=== PATIENT | male | born 1945 | race Caucasian/White ===

== ENCOUNTER 2020-07-24 20:29 | Inpatient (IN) ==
--- NOTE | 2020-07-24 20:55 | Emergency Department Note ---
Impression & Plan Multifocal pneumonia, Non-ST elevation [place] (NSTEMI), Hypoxia, Breathlessness, Creatinine elevation ED Provider Note Provider: Alex Beck MD DATE OF SERVICE:07/24/2020 CHIEF COMPLAINT: Shortness of breath HISTORY OF PRESENT ILLNESS: Patient is a 74-year-old gentleman history of diabetes as well as kidney and lung lesion previously resected several years ago follows at the [facility] presenting here today stating that yesterday started with some shortness of breath worsening today. Was seen at the [facility] yesterday and an EKG that was reportedly okay per him as well as a chest x-ray but he does not know the result. Went home and due to worsening symptoms came here today. Denies fever or trauma. Denies URI symptoms. Denies chest pain or abdominal pain at this point. Reports that he just feels very short of breath. Denies significant leg swelling. Denies a history of similar. Denies sick contact to his knowledge. REVIEW OF SYSTEMS: A total of 10 review of systems was obtained and negative except as stated above in the HPI. PAST MEDICAL HISTORY: As noted above MEDICATIONS: Reviewed home medication list SOCIAL HISTORY: , non-smoker PHYSICAL EXAM: GENERAL: alert and oriented sitting on the stretcher with some increased work of breathing. Head: normocephalic and atraumatic EYES: No injection, discharge or icterus. NECK: Trachea midline. ENT: Mucous membranes pink and moist. LUNGS: Airway patent. Some auditory slight wheezes appreciated with increased work of breathing and tachypnea HEART: Regular tachycardic rate and rhythm. No chest wall tenderness ABDOMEN: Soft and non-tender, without guarding or rebound. Healed prior surgical abdominal wounds/port sites. SKIN: Acyanotic, warm, dry, without rashes EXTREMITIES: Without swelling, tenderness or deformity NEUROLOGICAL: No focal deficits. No aphasia. No facial droop or slurred speech. EK bpm sinus tachycardia. No PVC. No acute ST segment elevation noted with some questionable lateral and inferior ST flattening/slight depression. QTC 483. CONTINUOUS CARDIAC MONITORING: was ordered and showed a heart rate of 118 bpm in sinus tachycardia 1 view chest x-ray per my interpretation shows no evidence of pneumothorax or acute rib injury. Rotation is noted on the film question some haziness and opacity around the right medial lung base. No free air under the diaphragm noted. Patient's laboratory studies and imaging reviewed. Differential includes Reactive airway disease, pneumonia, pneumothorax, COPD, CHF, infections, cardiac ischemia, pulmonary embolism, musculoskeletal, gas trointestinal, as well as other pathologies. IMPRESSION/MEDICAL DECISION MAKING: Patient denies significant history of respiratory issue but states he did have what sounds like a partial lung resection several years ago. Denies a smoking history. Denies fever trauma or pain at this point but just shortness of breath. No recent travel. Patient tachypneic and tachycardic here with new oxygen requirement. Having active chest pain at this time. EKG without significant change and appears to be in sinus tachycardia. X-ray question some changes of the right lung base medially. Leukocytosis of 13 is noted. Coronavirus testing was sent as well as influenza testing. Troponin and basic labs sent as well as lactate and cultures. VBG sent. Given some fluid hydration here. Does not seem consistent with fluid overload. Doubt acute aortic dissection given his lack of pain. Laboratory studies show elevated glucose level given some insulin in addition to IV fluids here. Troponin is mildly elevated. Leukocytosis of 13.3 noted. Lactate elevated 2.9. Creatinine elevated 2.4. Given this CT scan of chest for PE was considered but with the kidney function finding we will do a Noncon scan at this time to further evaluate the pulmonary parenchyma. VBG without significant abnormality. Given findings cover empirically with a dose of ceftriaxone. CT scan later shows area of multifocal pneumonia likely some reactive lymphadenopathy. D-dimer is moderately elevated unclear if this is from infection versus possible VTE. Again PE cannot be clearly evaluated at this time with CTA 2/2 Cr. Will provide with a milligram per kilogram dose of Lovenox for anticoagulation at this time. Given additional vancomycin and azithromycin for broad coverage given his multifocal pneumonia findings per the CT scan here. Given aspirin as well with mild troponin elevation; as no CP ?demand as cause. Patient given additional IV fluids. Discussed with the patient and he was agreed with the plan for further care here at the hospital. The hospitalist was contacted. [place] body weight for 30 mg/kg of 2.5 L normal saline ordered. DIAGNOSIS: Multifocal pneumonia, hypoxia, NSTEMI, sepsis DISPOSITION: Hospitalist will evaluate Patient was agreeable with this plan. Critical Care I have personally spent 38 minutes of critical care time in the direct management of this patient. This includes bedside care, interpretation of diagnostic studies, and testing, discussion with consultants, patient, and family members, and other required patient management activities. These 38 minutes is in excess of all separately billable procedures. Preliminary Findings Only See Final Report For Complete Findings CT CHEST Without Contrast: Posterior left upper lobe consolidation and mild patchy left upper lobe ground- glass infiltrates. Anterior right upper lobe ground-glass and interstitial infiltrate. Appearance consistent with pneumonia in the appropriate clinic s etting. No pleural effusions. Mild mediastinal lymphadenopathy which may be reactive. Trace anterior pericardial effusion or thickening. Radiologist: Huey Jonas M.D. Study ready at 22:45 and initial results transmitted at 22:51 Past Med/Surg History Social History Smoking Status: Never smoker Allergies Allergies Allergy/AdvReac Type Severity Reaction Status Date / Time No Known Allergies Allergy Verified 07/24/20 23:15 Home Meds Home Medications Medication Instructions Recorded Confirmed atenolol 100 mg PO DAILY 07/24/20 07/24/20 clonidine HCl 0.2 mg PO BID 07/24/20 07/24/20 glipizide 10 mg PO BID 07/24/20 07/24/20 Results & Data (ED) Vital Signs Vital Signs - 24 hr 07/24/20 20:30 07/24/20 20:32 07/24/20 20:47 Temperature 36.8 C Temperature Source Oral Pulse Rate 123 H 114 H Pulse Rate from SpO2 Sensor Respiratory Rate 28 H 29 H Respiratory Effort / Characteristics Labored Short of Breath Short of Breath Respiratory Pattern Tachypnea Blood Pressure 154/90 H Blood Pressure Mean 111 Pulse Oximetry 79 L 86 L Oxygen Delivery Method Room Air Nasal Cannula Room Air Oxygen Flow Rate 0 Sepsis Recent Fever Within 48 Hours No Sepsis New/Unexplained Change in Mental Status N/A Sepsis Action Taken by Nursing No Action Required Oxygen Flow Rate - Titration 6 Pulse Oximetry Post Tiitration 95 07/24/20 20:48 07/24/20 21:00 07/24/20 21:01 Temperature Temperature Source Pulse Rate 115 H 119 H Pulse Rate from SpO2 Sensor 113 H 120 H Respiratory Rate 28 H 27 H Respiratory Effort / Characteristics Respiratory Pattern Blood Pressure 129/91 Blood Pressure Mean 118 Pulse Oximetry 83 L 90 Oxygen Delivery Method Nasal Cannula Room Air Oxygen Flow Rate 6 Sepsis Recent Fever Within 48 Hours Sepsis New/Unexplained Change in Mental Status Sepsis Action Taken by Nursing Oxygen Flow Rate - Titration Pulse Oximetry Post Tiitration 10/29/20 21:31 07/24/20 21:39 07/24/20 22:01 Temperature Temperature Source Pulse Rate 111 H 106 H Pulse Rate from SpO2 Sensor 111 H 106 H Respiratory Rate 19 26 H Respiratory Effort / Characteristics Spontaneous Labored Short of Breath Respiratory Pattern Blood Pressure 103/47 L 109/78 Blood Pressure Mean 59 85 Pulse Oximetry 93 95 94 Oxygen Delivery Method Nasal Cannula Oxygen Flow Rate 6 6 6 Sepsis Recent Fever Within 48 Hours Sepsis New/Unexplained Change in Mental Status Sepsis Action Taken by Nursing Oxygen Flow Rate - Titration Pulse Oximetry Post Tiitration 07/24/20 22:30 07/24/20 22:56 07/25/20 00:06 Temperature Temperature Source Pulse Rate Pulse Rate from SpO2 Sensor 102 H Respiratory Rate 18 22 Respiratory Effort / Characteristics Non-Labored Non-Labored Respiratory Pattern Blood Pressure 149/71 H Blood Pressure Mean 107 Pulse Oximetry 93 95 95 Oxygen Delivery Method Nasal Cannula Nasal Cannula Oxygen Flow Rate 6 6 6 Sepsis Recent Fever Within 48 Hours Sepsis New/Unexplained Change in Mental Status Sepsis Action Taken by Nursing Oxygen Flow Rate - Titration Pulse Oximetry Post Tiitration Laboratory Data Result diagrams: 07/24/20 21:05 07/24/20 21:05 Lab Results 07/24/20 07/24/20 07/24/20 Range/Units 20:48 20:48 21:05 WBC 13.32 H (4.8-10.8) K/uL RBC 5.04 (4.7-6.1) M/uL Hgb 15.3 (14.0-18.0) g/dL Hct 46.5 (42-52) % MCV 92.3 (80-100) fL MCH 30.4 (25-34) pg MCHC 32.9 (32-36) g/dL RDW Std Deviation 47.2 H (36.4-46.3) fL RDW Coeff of [place] 13.9 (11.5-14.5) % Plt Count 169 (130-400) K/uL MPV 9.8 (7.4-10.4) fL Immature Gran % (Auto) 0.4 % Neut % (Auto) 86.5 % Lymph % (Auto) 5.3 % [place] % (Auto) 7.4 % Eos % (Auto) 0.2 % Baso % (Auto) 0.2 % Neut # (Auto) 11.52 H (1.4-6.5) K/uL Lymph # (Auto) 0.71 L (1.2-3.4) K/uL [place] # (Auto) 0.99 H (0.11-0.59) K/uL Eos # (Auto) 0.02 (0-0.5) K/uL Baso # (Auto) 0.03 (0-0.2) K/uL Immature Gran # (Auto) 0.05 H (0.00-0.02) K/uL PT INR APTT PTT Ratio D-Dimer VBG pH (7.36-7.41) VBG pCO2 (38-50) mmHg VBG pO2 mmHg VBG HCO3 mmol/L VBG O2 Saturation % VBG Base Excess mEq/L Barometric Pressure mm/Hg Sodium (136-145) mmol/L Potassium (3.5-5.1) mmol/L Chloride (98-107) mmol/L Carbon Dioxide (21-32) mmol/L Anion Gap (3-11) BUN (7-18) mg/dl Creatinine (0.6-1.4) mg/dl Est Cr Clr Drug Dosing ml/min Est GFR ( Amer) Est GFR (Non-Af Amer) BUN/Creatinine Ratio (10-20) Glucose (70-99) mg/dl POC Glucose (70-99) mg/dl Lactate (0.4-2.0) mmol/L Calcium (8.5-10.1) mg/dl Magnesium (1.8-2.4) mg/dl Total Bilirubin (0.2-1) mg/dl AST (15-37) U/L ALT (12-78) U/L Alkaline Phosphatase (45-117) U/L Troponin I (0-0.045) ng/ml Total Protein (6.4-8.2) gm/dl Albumin (3.4-5.0) gm/dl Globulin (2.5-4.0) gm/dl Albumin/Globulin Ratio (0.9-2) Lipase (73-393) U/L Beta-Hydroxybutyric Acd (0.2-2.81) mg/dl Procalcitonin Specimen Hemolysis Urine Color Urine Appearance (Clear) Urine pH (4.5-7.5) Ur Specific [place] (1.000-1.030) Urine Protein (Negative) Urine Glucose (UA) (Negative) Urine Ketones (Negative) Urine Blood (Negative) Urine Nitrite (Negative) Urine Bilirubin (Negative) Urine Urobilinogen (Negative) Ur Leukocyte Esterase (Negative) Urine WBC (Auto) (0-5) /hpf Urine RBC (Auto) (0-4) /hpf U Hyaline Cast (Auto) (0-5) /lpf U Epithel Cells (Auto) (0-5) /lpf Urine Bacteria (Auto) (Negative) Urine Yeast Urine Sperm (None Prsent) COVID-19 Eval Order Covid19 Done at [facility] COVID-19 PCR NEGATIVE (Negative) Influ A Molecular Assay (Negative) Influ B Molecular Assay (Negative) 07/24/20 07/24/20 07/24/20 Range/Units 21:05 21:05 21:05 WBC (4.8-10.8) K/uL RBC (4.7-6.1) M/uL Hgb (14.0-18.0) g/dL Hct (42-52) % MCV (80-100) fL MCH (25-34) pg MCHC (32-36) g/dL RDW Std Deviation (36.4-46.3) fL RDW Coeff of [place] (11.5-14.5) % Plt Count (130-400) K/uL MPV (7.4-10.4) fL Immature Gran % (Auto) % Neut % (Auto) % Lymph % (Auto) % [place] % (Auto) % Eos % (Auto) % Baso % (Auto) % Neut # (Auto) (1.4-6.5) K/uL Lymph # (Auto) (1.2-3.4) K/uL [place] # (Auto) (0.11-0.59) K/uL Eos # (Auto) (0-0.5) K/uL Baso # (Auto) (0-0.2) K/uL Immature Gran # (Auto) (0.00-0.02) K/uL PT Cancelled INR Cancelled APTT Cancelled PTT Ratio Cancelled D-Dimer Cancelled VBG pH (7.36-7.41) VBG pCO2 (38-50) mmHg VBG pO2 mmHg VBG HCO3 mmol/L VBG O2 Saturation % VBG Base Excess mEq/L Barometric Pressure mm/Hg Sodium 130 L (136-145) mmol/L Potassium 4.7 (3.5-5.1) mmol/L Chloride 100 (98-107) mmol/L Carbon Dioxide 24 (21-32) mmol/L Anion Gap 7.0 (3-11) BUN 32 H (7-18) mg/dl Creatinine 2.40 H (0.6-1.4) mg/dl Est Cr Clr Drug Dosing 37.4 ml/min Est GFR ( Amer) 30.1 Est GFR (Non-Af Amer) 26.0 BUN/Creatinine Ratio 13.1 (10-20) Glucose 491 H* (70-99) mg/dl POC Glucose (70-99) mg/dl Lactate (0.4-2.0) mmol/L Calcium 9.2 (8.5-10.1) mg/dl Magnesium 1.7 L (1.8-2.4) mg/dl Total Bilirubin 0.4 (0.2-1) mg/dl AST 36 (15-37) U/L ALT 52 (12-78) U/L Alkaline Phosphatase 138 H (45-117) U/L Troponin I 0.094 H* (0-0.045) ng/ml Total Protein 7.8 (6.4-8.2) gm/dl Albumin 3.7 (3.4-5.0) gm/dl Globulin 4.1 H (2.5-4.0) gm/dl Albumin/Globulin Ratio 0.9 (0.9-2) Lipase 155 (73-393) U/L Beta-Hydroxybutyric Acd (0.2-2.81) mg/dl Procalcitonin Cancelled Specimen Hemolysis Urine Color Urine Appearance (Clear) Urine pH (4.5-7.5) Ur Specific [place] (1.000-1.030) Urine Protein (Negative) Urine Glucose (UA) (Negative) Urine Ketones (Negative) Urine Blood (Negative) Urine Nitrite (Negative) Urine Bilirubin (Negative) Urine Urobilinogen (Negative) Ur Leukocyte Esterase (Negative) Urine WBC (Auto) (0-5) /hpf Urine RBC (Auto) (0-4) /hpf U Hyaline Cast (Auto) (0-5) /lpf U Epithel Cells (Auto) (0-5) /lpf Urine Bacteria (Auto) (Negative) Urine Yeast Urine Sperm (None Prsent) COVID-19 Eval Order COVID-19 PCR (Negative) Influ A Molecular Assay (Negative) Influ B Molecular Assay (Negative) 07/24/20 07/24/20 07/24/20 Range/Units 21:05 21:31 21:31 WBC (4.8-10.8) K/uL RBC (4.7-6.1) M/uL Hgb (14.0-18.0) g/dL Hct (42-52) % MCV (80-100) fL MCH (25-34) pg MCHC (32-36) g/dL RDW Std Deviation (36.4-46.3) fL RDW Coeff of [place] (11.5-14.5) % Plt Count (130-400) K/uL MPV (7.4-10.4) fL Immature Gran % (Auto) % Neut % (Auto) % Lymph % (Auto) % [place] % (Auto) % Eos % (Auto) % Baso % (Auto) % Neut # (Auto) (1.4-6.5) K/uL Lymph # (Auto) (1.2-3.4) K/uL [place] # (Auto) (0.11-0.59) K/uL Eos # (Auto) (0-0.5) K/uL Baso # (Auto) (0-0.2) K/uL Immature Gran # (Auto) (0.00-0.02) K/uL PT INR APTT PTT Ratio D-Dimer VBG pH 7.36 (7.36-7.41) VBG pCO2 40 (38-50) mmHg VBG pO2 52 mmHg VBG HCO3 22 mmol/L VBG O2 Saturation 83.9 % VBG Base Excess -2.8 mEq/L Barometric Pressure 726.7 mm/Hg Sodium (136-145) mmol/L Potassium (3.5-5.1) mmol/L Chloride (98-107) mmol/L Carbon Dioxide (21-32) mmol/L Anion Gap (3-11) BUN (7-18) mg/dl Creatinine (0.6-1.4) mg/dl Est Cr Clr Drug Dosing ml/min Est GFR ( Amer) Est GFR (Non-Af Amer) BUN/Creatinine Ratio (10-20) Glucose (70-99) mg/dl POC Glucose (70-99) mg/dl Lactate 2.9 H* (0.4-2.0) mmol/L Calcium (8.5-10.1) mg/dl Magnesium (1.8-2.4) mg/dl Total Bilirubin (0.2-1) mg/dl AST (15-37) U/L ALT (12-78) U/L Alkaline Phosphatase (45-117) U/L Troponin I (0-0.045) ng/ml Total Protein (6.4-8.2) gm/dl Albumin (3.4-5.0) gm/dl Globulin (2.5-4.0) gm/dl Albumin/Globulin Ratio (0.9-2) Lipase (73-393) U/L Beta-Hydroxybutyric Acd (0.2-2.81) mg/dl Procalcitonin Specimen Hemolysis Urine Color Urine Appearance (Clear) Urine pH (4.5-7.5) Ur Specific [place] (1.000-1.030) Urine Protein (Negative) Urine Glucose (UA) (Negative) Urine Ketones (Negative) Urine Blood (Negative) Urine Nitrite (Negative) Urine Bilirubin (Negative) Urine Urobilinogen (Negative) Ur Leukocyte Esterase (Negative) Urine WBC (Auto) (0-5) /hpf Urine RBC (Auto) (0-4) /hpf U Hyaline Cast (Auto) (0-5) /lpf U Epithel Cells (Auto) (0-5) /lpf Urine Bacteria (Auto) (Negative) Urine Yeast Urine Sperm (None Prsent) COVID-19 Eval Order COVID-19 PCR (Negative) Influ A Molecular Assay Negative (Negative) Influ B Molecular Assay Negative (Negative) 07/24/20 07/24/20 07/24/20 Range/Units 22:15 22:19 22:50 WBC (4.8-10.8) K/uL RBC (4.7-6.1) M/uL Hgb (14.0-18.0) g/dL Hct (42-52) % MCV (80-100) fL MCH (25-34) pg MCHC (32-36) g/dL RDW Std Deviation (36.4-46.3) fL RDW Coeff of [place] (11.5-14.5) % Plt Count (130-400) K/uL MPV (7.4-10.4) fL Immature Gran % (Auto) % Neut % (Auto) % Lymph % (Auto) % [place] % (Auto) % Eos % (Auto) % Baso % (Auto) % Neut # (Auto) (1.4-6.5) K/uL Lymph # (Auto) (1.2-3.4) K/uL [place] # (Auto) (0.11-0.59) K/uL Eos # (Auto) (0-0.5) K/uL Baso # (Auto) (0-0.2) K/uL Immature Gran # (Auto) (0.00-0.02) K/uL PT 10.9 INR 1.0 APTT 26.6 PTT Ratio 1.0 D-Dimer 4110 H* VBG pH (7.36-7.41) VBG pCO2 (38-50) mmHg VBG pO2 mmHg VBG HCO3 mmol/L VBG O2 Saturation % VBG Base Excess mEq/L Barometric Pressure mm/Hg Sodium (136-145) mmol/L Potassium (3.5-5.1) mmol/L Chloride (98-107) mmol/L Carbon Dioxide (21-32) mmol/L Anion Gap (3-11) BUN (7-18) mg/dl Creatinine (0.6-1.4) mg/dl Est Cr Clr Drug Dosing ml/min Est GFR ( Amer) Est GFR (Non-Af Amer) BUN/Creatinine Ratio (10-20) Glucose (70-99) mg/dl POC Glucose (70-99) mg/dl Lactate (0.4-2.0) mmol/L Calcium (8.5-10.1) mg/dl Magnesium (1.8-2.4) mg/dl Total Bilirubin (0.2-1) mg/dl AST (15-37) U/L ALT (12-78) U/L Alkaline Phosphatase (45-117) U/L Troponin I (0-0.045) ng/ml Total Protein (6.4-8.2) gm/dl Albumin (3.4-5.0) gm/dl Globulin (2.5-4.0) gm/dl Albumin/Globulin Ratio (0.9-2) Lipase (73-393) U/L Beta-Hydroxybutyric Acd (0.2-2.81) mg/dl Procalcitonin < 0.05 Specimen Hemolysis Urine Color Yellow Urine Appearance Clear (Clear) Urine pH 5.0 (4.5-7.5) Ur Specific [place] 1.025 (1.000-1.030) Urine Protein 1+ H (Negative) Urine Glucose (UA) 3+ H (Negative) Urine Ketones Negative (Negative) Urine Blood Negative (Negative) Urine Nitrite Negative (Negative) Urine Bilirubin Negative (Negative) Urine Urobilinogen Negative (Negative) Ur Leukocyte Esterase 1+ H (Negative) Urine WBC (Auto) 10-30 H (0-5) /hpf Urine RBC (Auto) 0-4 (0-4) /hpf U Hyaline Cast (Auto) 1-5 (0-5) /lpf U Epithel Cells (Auto) >30 H (0-5) /lpf Urine Bacteria (Auto) Negative (Negative) Urine Yeast Not Reportable Urine Sperm Present A (None Prsent) COVID-19 Eval Order COVID-19 PCR (Negative) Influ A Molecular Assay (Negative) Influ B Molecular Assay (Negative) 07/24/20 07/25/20 Range/Units 23:33 00:06 WBC (4.8-10.8) K/uL RBC (4.7-6.1) M/uL Hgb (14.0-18.0) g/dL Hct (42-52) % MCV (80-100) fL MCH (25-34) pg MCHC (32-36) g/dL RDW Std Deviation (36.4-46.3) fL RDW Coeff of [place] (11.5-14.5) % Plt Count (130-400) K/uL MPV (7.4-10.4) fL Immature Gran % (Auto) % Neut % (Auto) % Lymph % (Auto) % [place] % (Auto) % Eos % (Auto) % Baso % (Auto) % Neut # (Auto) (1.4-6.5) K/uL Lymph # (Auto) (1.2-3.4) K/uL [place] # (Auto) (0.11-0.59) K/uL Eos # (Auto) (0-0.5) K/uL Baso # (Auto) (0-0.2) K/uL Immature Gran # (Auto) (0.00-0.02) K/uL PT INR APTT PTT Ratio D-Dimer VBG pH (7.36-7.41) VBG pCO2 (38-50) mmHg VBG pO2 mmHg VBG HCO3 mmol/L VBG O2 Saturation % VBG Base Excess mEq/L Barometric Pressure mm/Hg Sodium (136-145) mmol/L Potassium (3.5-5.1) mmol/L Chloride (98-107) mmol/L Carbon Dioxide (21-32) mmol/L Anion Gap (3-11) BUN (7-18) mg/dl Creatinine (0.6-1.4) mg/dl Est Cr Clr Drug Dosing ml/min Est GFR ( Amer) Est GFR (Non-Af Amer) BUN/Creatinine Ratio (10-20) Glucose (70-99) mg/dl POC Glucose 301 H* (70-99) mg/dl Lactate 1.6 (0.4-2.0) mmol/L Calcium (8.5-10.1) mg/dl Magnesium (1.8-2.4) mg/dl Total Bilirubin (0.2-1) mg/dl AST (15-37) U/L ALT (12-78) U/L Alkaline Phosphatase (45-117) U/L Troponin I (0-0.045) ng/ml Total Protein (6.4-8.2) gm/dl Albumin (3.4-5.0) gm/dl Globulin (2.5-4.0) gm/dl Albumin/Globulin Ratio (0.9-2) Lipase (73-393) U/L Beta-Hydroxybutyric Acd (0.2-2.81) mg/dl Procalcitonin Specimen Hemolysis Urine Color Urine Appearance (Clear) Urine pH (4.5-7.5) Ur Specific [place] (1.000-1.030) Urine Protein (Negative) Urine Glucose (UA) (Negative) Urine Ketones (Negative) Urine Blood (Negative) Urine Nitrite (Negative) Urine Bilirubin (Negative) Urine Urobilinogen (Negative) Ur Leukocyte Esterase (Negative) Urine WBC (Auto) (0-5) /hpf Urine RBC (Auto) (0-4) /hpf U Hyaline Cast (Auto) (0-5) /lpf U Epithel Cells (Auto) (0-5) /lpf Urine Bacteria (Auto) (Negative) Urine Yeast Urine Sperm (None Prsent) COVID-19 Eval Order COVID-19 PCR (Negative) Influ A Molecular Assay (Negative) Influ B Molecular Assay (Negative) Administered Medications Azithromycin 500 mg/ Dextrose 255 mls @ 127.5 mls/hr IV NOW STA Stop: 07/25/20 00:59 Last Admin: 07/24/20 23:34 Dose: 127.5 mls/hr Documented by: [id number] Vancomycin HCl 2,500 mg/ (Sodium Chloride) 550 mls @ 200 mls/hr IV NOW ONE Stop: 07/25/20 01:44 Last Admin: 07/24/20 23:35 Dose: 200 mls/hr Documented by: [id number] Discontinued Medications Aspirin (Aspirin 81 Mg Chew) 324 mg PO NOW STA Stop: 07/24/20 23:01 Last Admin: 07/24/20 23:35 Dose: 324 mg Documented by: [id number] Enoxaparin Sodium (Enoxaparin 1 Mg/Kg) 1 mg SQ ONCE ONE Stop: 07/24/20 23:02 Last Admin: 07/24/20 23:35 Dose: 1 mg Documented by: [id number] Enoxaparin Sodium (Enoxaparin Inj 120 Mg/0.8 Ml Syr) 120 mg SQ NOW STA Stop: 07/24/20 23:07 Last Admin: 07/24/20 23:35 Dose: 120 mg Documented by: [id number] Sodium Chloride (Nss 1000ml) 1,000 mls @ 999 mls/hr IV .Q1H1M [id number] Stop: 07/24/20 22:00 Last Admin: 07/24/20 21:56 Dose: 999 mls/hr Documented by: [id number] Ceftriaxone Sodium (Rocephin) 2,000 mg in 70 mls @ 140 mls/hr IV NOW STA Stop: 07/24/20 22:50 Last Admin: 07/24/20 23:02 Dose: 140 mls/hr Documented by: [id number] Sodium Chloride (Nss 1000ml) 1,000 mls @ 999 mls/hr IV .Q1H1M ONE Stop: 07/25/20 00:20 Last Admin: 07/24/20 23:36 Dose: 999 mls/hr Documented by: [id number] Insulin Human Regular (Novolin-R Insulin Per Unit Charge) 10 units IV NOW STA Stop: 07/24/20 22:08 Last Admin: 07/24/20 22:13 Dose: 10 units Documented by: [id number] Cosigned by: [id number] Discharge Plan Visit Data Chief Complaint: Shortness of Breath/Dyspnea Stated Complaint: SOB, TROUBLE BREATHING ED Provider: Alex Beck Discharge Problem: Multifocal pneumonia, Non-ST elevation [place] (NSTEMI), Hypoxia, Breathlessness, Creatinine elevation Patient Disposition: Admitted As Inpatient Forms Stand Alone Forms: My [facility] Prescriptions Prescriptions: No Action clonidine HCl 0.1 mg tablet 0.2 mg PO BID RF: 0 atenolol 100 mg tablet 100 mg PO DAILY RF: 0 glipizide 10 mg tablet 10 mg PO BID RF: 0 Referrals Referrals: PCP,NO [Primary Care Provider] -
[2020-07-24] MEDS ORDERED: SODIUM CHLORIDE 0.9% 1000ML 1,000 ML IV SCH (21:00)
[2020-07-24 21:29] LABS: Basophils # (auto) 0.03 K/uL (0-0.2); Basophils % (auto) 0.2 %; Eosinophils # (auto) 0.02 K/uL (0-0.5); Eosinophils % (auto) 0.2 %; Hematocrit (blood only) 46.5 % (42-52); Hemoglobin 15.3 g/dL (14.0-18.0); Immature Granulocytes # (auto) 0.05 K/uL (0.00-0.02); Immature Granulocytes % (auto) 0.4 %; Lymphocytes # (auto) 0.71 K/uL (1.2-3.4); Lymphocytes % (auto) 5.3 %; Mean Corpuscular Hemoglobin 30.4 pg (25-34); Mean Corpuscular Hgb Conc 32.9 g/dL (32-36); Mean Corpuscular Volume 92.3 fL (80-100); Mean Platelet Volume 9.8 fL (7.4-10.4); Monocytes # (auto) 0.99 K/uL (0.11-0.59); Monocytes % (auto) 7.4 %; Neutrophils # (auto) 11.52 K/uL (1.4-6.5); Neutrophils % (auto) 86.5 %; Platelet Count 169 K/uL (130-400); RDW Coefficient of Variation 13.9 % (11.5-14.5); RDW Standard Deviation 47.2 fL (36.4-46.3); Red Blood Count 5.04 M/uL (4.7-6.1); White Blood Count 13.32 K/uL (4.8-10.8)
[2020-07-24 21:51] LABS: Influenza A virus by PCR Negative (Negative); Influenza B virus by PCR Negative (Negative)
[2020-07-24 21:58] LABS: Albumin Globulin Ratio 0.9 (0.9-2); Albumin Level 3.7 gm/dl (3.4-5.0); BUN Creatinine Ratio 13.1 (10-20); Bilirubin,Total 0.4 mg/dl (0.2-1); Calcium 9.2 mg/dl (8.5-10.1); Creatinine Clr Calc Pharmacy 37.4 ml/min; Est GFR (African American) 30.1; Globulin 4.1 gm/dl (2.5-4.0); Magnesium 1.7 mg/dl (1.8-2.4); Potassium 4.7 mmol/L (3.5-5.1); Total Protein 7.8 gm/dl (6.4-8.2); Troponin I 0.094 ng/ml (0-0.045)
[2020-07-24 22:05] LABS: Base Excess VBG -2.8 mEq/L; Oxygen Saturation VBG 83.9 %; pH VBG 7.36 (7.36-7.41)
[2020-07-24] MEDS ORDERED: NovoLIN-R INSULIN PER UNIT CHARGE IV STA (22:07)
[2020-07-24] MEDS ORDERED: cefTRIAXone SODIUM 2,000 MG/70 ML BAG IV STA (22:21)
[2020-07-24 22:52] LABS: Partial Thromboplastin Time 26.6 Seconds (21.0-31.0); Prothrombin Time 10.9 Seconds (9.0-12.0)
[2020-07-24 22:54] LABS: D Dimer 4110 ug/L FEU (0-500)
[2020-07-24] MEDS ORDERED: AZITHROMYCIN 500 MG in DEXTROSE 5% 250 ML IV STA (23:00)
[2020-07-24] MEDS ORDERED: VANCOMYCIN CONSULT ACTIVE PRN (23:00)
[2020-07-24] MEDS ORDERED: VANCOMYCIN HCL 2,500 MG in SODIUM CHLORIDE 0.9% 500 ML IV ONE (23:00)
[2020-07-24] MEDS ORDERED: ASPIRIN 81 MG CHEW PO STA (23:00)
[2020-07-24] MEDS ORDERED: ENOXAPARIN 1 MG/KG SQ ONE (23:01)
[2020-07-24] MEDS ORDERED: ENOXAPARIN INJ 120 MG/0.8 ML SYR SQ STA (23:06)
[2020-07-24 23:11] LABS: Appearance Urine Clear (Clear); Bacteria Urine Automated Negative (Negative); Bilirubin Urine Negative (Negative); Blood Urine Negative (Negative); Color Urine Yellow; Epithelial Cell Urine Auto >30 /lpf (0-5); Glucose Urine UA 3+ (Negative); Ketones Urine Negative (Negative); Leukocyte Esterase Urine 1+ (Negative); Nitrite Urine Negative (Negative); Protein Urine 1+ (Negative); RBC Urine Automated 0-4 /hpf (0-4); Specific Gravity Urine 1.025 (1.000-1.030); Urobilinogen Urine Negative (Negative)
[2020-07-24] MEDS ORDERED: SODIUM CHLORIDE 0.9% 1000ML 1,000 ML IV ONE (23:20)
[2020-07-24] MEDS ORDERED: SODIUM CHLORIDE 0.9% 1000ML 500 ML IV ONE (23:32)
--- NOTE | 2020-07-24 23:52 | History & Physical Report ---
Date of Service July 24, 2020 Assessment & Plan (1) Multifocal pneumonia: Vancomycin IV per pharmacokinetic monitoring. Zosyn 4.5 g IV every 8 hours Azithromycin 500 mg IV daily Duonebs every 4 hours while awake and every 2 hours when necessary. Nasal cannula oxygen titrate to keep pulse ox 94 to 95% Present on Admission?: Yes (2) Non-ST elevation SD (NSTEMI): NSTEMI/hypertension- The patient will be admitted to telemetry for serial cardiac enzymes, serial EKG's, cardiac rhythm monitoring and a 2-D echocardiogram with Dopplers. Continue atenolol 100 mg daily, clonidine 0.2 mg p.o. twice daily. Add aspirin 81 mg daily Present on Admission?: Yes (3) Renal insufficiency: Creatinine 2.40 upon admission with unknown baseline. Repeat laboratories in a.m. Present on Admission?: Yes (4) Diabetes mellitus: Hold glipizide. Placed on Accu-Cheks before meals and at bedtime with NovoLog coverage per scale Check hemoglobin A1c and a fasting lipid panel Present on Admission?: Yes (5) Hypertension: See above Present on Admission?: Yes (6) COVID-19 virus antibody negative: History of Present Illness Chief Complaint: The patient presents to the emergency department with complaint of worsening shortness of breath today, after initial assessment at the [place] clinic yesterday. Primary Care Provider: NO PCP The patient is a 74-year-old male with a past medical history including hypertension, diabetes mellitus, presently undergoing chemotherapy for cancer involving lung and kidney. He was seen at the [place] clinic yesterday due to developing shortness of breath, and reports having a chest x-ray and EKG that he thought were normal. Due to worsening issues with breathing, he presented to the emergency department today for further assessment. Work-up in the emergency department included a chest x-ray and CT scan of chest which showed multifocal pneumonia, creatinine 2.40, troponin 0 0.094, magnesium 1.7, D-dimer 4110, and WBC 13.32. Allergies Allergy/AdvReac Type Severity Reaction Status Date / Time No Known Allergies Allergy Verified 07/24/20 23:15 Home Medications Home Medications Medication Instructions Recorded Confirmed Type atenolol 100 mg PO DAILY 07/24/20 07/24/20 History clonidine HCl 0.2 mg PO BID 07/24/20 07/24/20 History glipizide 10 mg PO BID 07/24/20 07/24/20 History Past Med/Surg History Medical History (Updated 07/25/20 @ 02:38 by Paul Aburto MD) Diabetes mellitus Hypertension Social History Smoking Status: Never smoker Hx Alcohol Use: No Hx Substance Use: No Preferred Language: [place]se Communication Ability: Effective Supply Requirements Officer Required: No Beliefs That Will Affect Care: None Current Living Situation: Alone Feels Safe at Home: Yes Review of Systems Review of Systems: The patient denies chest pain, palpitations, lower extremity swelling, sore throat, fevers, chills, sweats, nausea, vomiting, diarrhea , constipation, abdominal pain, pelvic pain, blood in urine or stool, dysuria, urinary frequency or urgency, lightheadedness, dizziness, headache, memory loss, loss of consciousness, rash, abnormal bruising or bleeding, imbalance, focal or generalized weakness, numbness or tingling in arms or legs, generalized arthralgias or myalgias, back or neck pain, or night sweats. The review of systems is otherwise negative other than for that already noted above, and at least 10 systems have been reviewed. Physical Exam Physical Exam: The patient is awake, alert and oriented 3, well developed and well nourished, normocephalic and atraumatic, lying in bed and in no acute distress. HEENT--PERRL, EOMI, mucous membranes and oropharynx normal. Neck--supple. No JVD. No bruits. Thyroid normal, trachea midline, no adenopathy. Heart--normal S1 and S2. No murmurs, rubs or gallops. Lungs--coarse breath sounds with wheezes bilaterally. No respiratory distress, no accessory muscle use. Abdomen--normal bowel sounds and soft. Nontender. Nondistended. Extremities--no cyanosis or clubbing. No edema. Dermatologic--normal skin turgor, normal color, no abnormal lymph nodes, no rash. Neurologic--cranial nerves II through XII grossly intact. Rheumatologic--normal range of motion. Psychiatric--normal affect. Results & Data Results & Data ([facility]) Vital Signs (Past 12 Hours) Vital Signs Temp Pulse Resp BP Pulse Ox 07/24/20 22:56 18 95 07/24/20 22:30 149/71 H 93 07/24/20 22:01 106 H 26 H 109/78 94 07/24/20 21:39 95 07/24/20 21:31 111 H 19 103/47 L 93 07/24/20 21:01 119 H 27 H 129/91 90 07/24/20 21:00 115 H 28 H 83 L 07/24/20 20:47 114 H 29 H 07/24/20 20:32 98.2 F 123 H 28 H 154/90 H 86 L 07/24/20 20:30 79 L Laboratory Results Laboratory Results WBC 13.32 K/uL (4.8-10.8) H 07/24/20 21:05 RBC 5.04 M/uL (4.7-6.1) 07/24/20 21:05 Hgb 15.3 g/dL (14.0-18.0) 07/24/20 21:05 Hct 46.5 % (42-52) 07/24/20 21:05 MCV 92.3 fL (80-100) 07/24/20 21:05 MCH 30.4 pg (25-34) 07/24/20 21:05 MCHC 32.9 g/dL (32-36) 07/24/20 21:05 RDW Std Deviation 47.2 fL (36.4-46.3) H 07/24/20 21:05 RDW Coeff of [place] 13.9 % (11.5-14.5) 07/24/20 21:05 Plt Count 169 K/uL (130-400) 07/24/20 21:05 MPV 9.8 fL (7.4-10.4) 07/24/20 21:05 Immature Gran % (Auto) 0.4 % 07/24/20 21:05 Neut % (Auto) 86.5 % 07/24/20 21:05 Lymph % (Auto) 5.3 % 07/24/20 21:05 [place] % (Auto) 7.4 % 07/24/20 21:05 Eos % (Auto) 0.2 % 07/24/20 21:05 Baso % (Auto) 0.2 % 07/24/20 21:05 Neut # (Auto) 11.52 K/uL (1.4-6.5) H 07/24/20 21:05 Lymph # (Auto) 0.71 K/uL (1.2-3.4) L 07/24/20 21:05 [place] # (Auto) 0.99 K/uL (0.11-0.59) H 07/24/20 21:05 Eos # (Auto) 0.02 K/uL (0-0.5) 07/24/20 21:05 Baso # (Auto) 0.03 K/uL (0-0.2) 07/24/20 21:05 Immature Gran # (Auto) 0.05 K/uL (0.00-0.02) H 07/24/20 21:05 PT 10.9 Seconds (9.0-12.0) 07/24/20 22: INR 1.0 (0.9-1.1) 07/24/20 22:19 APTT 26.6 Seconds (21.0-31.0) 07/24/20 22:19 PTT Ratio 1.0 07/24/20 22:19 D-Dimer 4110 ug/L FEU (0-500) H* 07/24/20 22:19 VBG pH 7.36 (7.36-7.41) 07/24/20 21:31 VBG pCO2 40 mmHg (38-50) 07/24/20 21:31 VBG pO2 52 mmHg 07/24/20 21:31 VBG HCO3 22 mmol/L 07/24/20 21:31 VBG O2 Saturation 83.9 % 07/24/20 21:31 VBG Base Excess -2.8 mEq/L 07/24/20 21:31 Barometric Pressure 726.7 mm/Hg 07/24/20 21:31 Sodium 130 mmol/L (136-145) L 07/24/20 21:05 Potassium 4.7 mmol/L (3.5-5.1) 07/24/20 21:05 Chloride 100 mmol/L (98-107) 07/24/20 21:05 Carbon Dioxide 24 mmol/L (21-32) 07/24/20 21:05 Anion Gap 7.0 (3-11) 07/24/20 21:05 BUN 32 mg/dl (7-18) H 07/24/20 21:05 Creatinine 2.40 mg/dl (0.6-1.4) H 07/24/20 21:05 Est Cr Clr Drug Dosing 37.4 ml/min 07/24/20 21:05 Est GFR ( Amer) 30.1 07/24/20 21:05 Est GFR (Non-Af Amer) 26.0 07/24/20 21:05 BUN/Creatinine Ratio 13.1 (-20) 07/24/20 21:05 Glucose 491 mg/dl (70-99) H* 07/24/20 21:05 POC Glucose 301 mg/dl (70-99) H* 07/24/20 23:33 Lactate 1.6 mmol/L (0.4-2.0) 07/25/20 00:06 Calcium 9.2 mg/dl (8.5-10.1) 07/24/20 21:05 Magnesium 1.7 mg/dl (1.8-2.4) L 07/24/20 21:05 Total Bilirubin 0.4 mg/dl (0.2-1) 07/24/20 21:05 AST 36 U/L (15-37) 07/24/20 21:05 ALT 52 U/L (12-78) 07/24/20 21:05 Alkaline Phosphatase 138 U/L (45-117) H 07/24/20 21:05 Troponin I 0.094 ng/ml (0-0.045) H* 07/24/20 21:05 Total Protein 7.8 gm/dl (6.4-8.2) 07/24/20 21:05 Albumin 3.7 gm/dl (3.4-5.0) 07/24/20 21:05 Globulin 4.1 gm/dl (2.5-4.0) H 07/24/20 21:05 Albumin/Globulin Ratio 0.9 (0.9-2) 07/24/20 21:05 Lipase 155 U/L (73-393) 07/24/20 21:05 Beta-Hydroxybutyric Acd mg/dl (0.2-2.81) 07/24/20 21:05 Procalcitonin < 0.05 ng/ml (0-0.5) 07/24/20 22:15 Specimen Hemolysis 07/24/20 21:05 Urine Color Yellow 07/24/20 22:50 Urine Appearance Clear (Clear) 07/24/20 22:50 Urine pH 5.0 (4.5-7.5) 07/24/20 22:50 Ur Specific [place] 1.025 (1.000-1.030) 07/24/20 22:50 Urine Protein 1+ (Negative) H 07/24/20 22:50 Urine Glucose (UA) 3+ (Negative) H 07/24/20 22:50 Urine Ketones Negative (Negative) 07/24/20 22:50 Urine Blood Negative (Negative) 07/24/20 22:50 Urine Nitrite Negative (Negative) 07/24/20 22:50 Urine Bilirubin Negative (Negative) 07/24/20 22:50 Urine Urobilinogen Negative (Negative) 07/24/20 22:50 Ur Leukocyte Esterase 1+ (Negative) H 07/24/20 22:50 Urine WBC (Auto) 10-30 /hpf (0-5) H 07/24/20 22:50 Urine RBC (Auto) 0-4 /hpf (0-4) 07/24/20 22:50 U Hyaline Cast (Auto) 1-5 /lpf (0-5) 07/24/20 22:50 U Epithel Cells (Auto) >30 /lpf (0-5) H 07/24/20 22:50 Urine Bacteria (Auto) Negative (Negative) 07/24/20 22:50 Urine Yeast Not Reportable 07/24/20 22:50 Urine Sperm Present (None Prsent) A 07/24/20 22:50 COVID-19 Eval Order Covid19 Done at [facility] 07/24/20 20:48 COVID-19 PCR NEGATIVE (Negative) 07/24/20 20:48 Influ A Molecular Assay Negative (Negative) 07/24/20 21:05 Influ B Molecular Assay Negative (Negative) 07/24/20 21:05 Diagnostic Findings [facility] Patient: REANNA STARKS JR (Male) : 49 Status: ER Date: 07/24/20 22:42 Room #: History: sob, negative covid test Slices: [id number] Priors: Tech: Domenica Ni @ [id number] Exams: CT CHEST Without Contrast Contrast: Accession Numbers: [id number] Preliminary Findings Only See Final Report For Complete Findings CT CHEST Without Contrast: Posterior left upper lobe consolidation and mild patchy left upper lobe ground- glass infiltrates. Anterior right upper lobe ground-glass and interstitial infiltrate. Appearance consistent with pneumonia in the appropriate clinic setting. No pleural effusions. Mild mediastinal lymphadenopathy which may be reactive. Trace anterior pericardial effusion or thickening. Radiologist: Huey Jonas M.D. Study ready at 22:45 and initial results transmitted at 22:51 *This report constitutes a preliminary interpretation only. Non-acute findings felt to be unrelated to the clinical presentation may not be discussed in this report. The study will be interpreted and a final report will be generated by the local Radiologist the following shift. To reach the hospital radiology department call [phone]. If a discrepancy is found between the preliminary and final interpretations of this study, please notify us via our Client Portal at [email or web address], under QA Exams.You can also fax this report with a description of the discrepancy, or include the final report, to our daytime fax number [phone].If faxing, please indicate the severity of discrepancy using one of the following categories: [ ] 1 - Agree/Informational [ ] 2 - Unlikely to Affect Management [ ] 3 - Possible Eventual Change of Management [ ] 4 - Probable Immediate Change of Management For all other patient related information, please fax us at [phone]. [id number] Code Status & VTE Plan Code Status Full code VTE Prophylaxis Plan VTE Prophylaxis will be ordered: Yes PG Care Time/CCT Total # of Minutes Spent Total Time Spent with Patient: Total time spent is greater than 50% in coordination of care (as documented) at patient's floor/unit and/or counseling patient: Coding Level of Care Code 33870 Initial Inpt Care Lvl 3 Diagnoses Multifocal pneumonia J18.9 Non-ST elevation SD (NSTEMI) I21.4 Renal insufficiency N28.9 Diabetes mellitus E11.9 Hypertension I10 COVID-19 virus antibody negative Z01.84
[2020-07-24 23:56] LABS: Sperm Urine Present (None Prsent)
[2020-07-25] MEDS ORDERED: PIPERACILL/TAZOBAC CONSULT ACTIVE PRN ×2 (02:39→02:50)
[2020-07-25] MEDS ORDERED: MAGNESIUM SULFATE / D5W 1 GM/100 ML BAG IV ONE (02:43)
[2020-07-25] MEDS ORDERED: GLUCOSE 40% GEL 15 GM TUBE PO PRN (02:50)
[2020-07-25] MEDS ORDERED: GLUCAGON FOR INJ 1 MG VIAL SQ PRN (02:50)
[2020-07-25] MEDS ORDERED: DEXTROSE 50% 50 ML SYRINGE IV PRN (02:50)
[2020-07-25] MEDS ORDERED: GLUCOSE 10 TABS/TUBE PO PRN (02:50)
[2020-07-25] MEDS ORDERED: VANCOMYCIN CONSULT ACTIVE PRN (02:50)
[2020-07-25] MEDS ORDERED: CARBOHYDRATES FOR HYPOGLYCEMIA PO PRN (02:50)
[2020-07-25] MEDS ORDERED: PIPERACILLIN/TAZOBACTAM 3.375 GM in DEXTROSE 5% 100 ML IV SCH (02:50)
[2020-07-25] MEDS ORDERED: ACETAMINOPHEN 325 MG TAB PO PRN (02:50)
[2020-07-25] MEDS ORDERED: ONDANSETRON INJ 2 MG/ML 2 ML VIAL IV PRN (02:50)
[2020-07-25] MEDS ORDERED: PIPERACILLIN/TAZOBACTAM 4.5 GM in DEXTROSE 5% 100 ML IV SCH ×2 (03:00→08:00)
[2020-07-25] MEDS: cloNIDine HCL 0.1 MG TAB PO SCH ×3 (03:39→20:49)
[2020-07-25 06:28] LABS: Basophils # (auto) 0.02 K/uL (0-0.2); Basophils % (auto) 0.2 %; Hematocrit (blood only) 44.1 % (42-52); Hemoglobin 14.6 g/dL (14.0-18.0); Immature Granulocytes # (auto) 0.04 K/uL (0.00-0.02); Immature Granulocytes % (auto) 0.4 %; Lymphocytes # (auto) 2.49 K/uL (1.2-3.4); Lymphocytes % (auto) 23.7 %; Mean Corpuscular Hemoglobin 30.1 pg (25-34); Mean Corpuscular Hgb Conc 33.1 g/dL (32-36); Mean Corpuscular Volume 90.9 fL (80-100); Mean Platelet Volume 9.8 fL (7.4-10.4); Monocytes # (auto) 0.87 K/uL (0.11-0.59); Monocytes % (auto) 8.3 %; Neutrophils % (auto) 66.4 %; Platelet Count 148 K/uL (130-400); RDW Coefficient of Variation 13.8 % (11.5-14.5); RDW Standard Deviation 45.7 fL (36.4-46.3); Red Blood Count 4.85 M/uL (4.7-6.1); White Blood Count 10.52 K/uL (4.8-10.8)
[2020-07-25 06:36] LABS: Estimated Average Glucose 232 mg/dl; Hemoglobin A1C 9.7 % (4.5-5.6)
[2020-07-25 06:59] LABS: Albumin Level 3.3 gm/dl (3.4-5.0); BUN Creatinine Ratio 15.2 (10-20); Calcium 8.9 mg/dl (8.5-10.1); Creatinine Clr Calc Pharmacy 46.5 ml/min; Est GFR (African American) 38.9; Est GFR (Non-African American) 33.6; Magnesium 2.4 mg/dl (1.8-2.4); Potassium 4.1 mmol/L (3.5-5.1)
[2020-07-25] MEDS ORDERED: ALBUT/IPRATROP 3MG/0.5MG NEB 3 ML VIAL NEB SCH (07:00)
[2020-07-25 07:03] LABS: Phosphorus 3.4 mg/dl (2.5-4.9); Troponin I 0.312 ng/ml (0-0.045)
[2020-07-25] MEDS: ALBUT/IPRATROP 3MG/0.5MG NEB 3 ML VIAL NEB SCH ×4 (07:14→19:34)
--- NOTE | 2020-07-25 07:38 | XRay Report ---
XR chest 1V portable CLINICAL HISTORY: SEPSIS COMPARISON STUDY: No previous studies for comparison. FINDINGS: The heart is borderline enlarged. There is subtle airspace opacities within the right mid t o lower lung zone and left upper lung zone. There are no pleural effusions. There is no overt failure . Arthritic changes are present within the shoulders.[ IMPRESSION: Subtle bilateral airspace opacities possibly representing a multifocal pneumonia. Clinica l and radiographic follow-up is recommended. ACT 112: Negative or not required by law. Electronically signed by: Hamilton Bailon M.D. 07/25/2020 7:37 AM
--- NOTE | 2020-07-25 07:54 | CT Scan Report ---
CT chest wo con CLINICAL HISTORY: Shortness of breath. Abnormal chest x-ray COMPARISON STUDY: Chest x-ray dated 07/24/2020 CT DOSE: 1311.32 mGy.cm TECHNIQUE: CT of the thorax was performed from the thoracic inlet to the lung bases. Images are revi ewed in the axial, sagittal, and coronal planes. IV contrast was not administered for this examinatio n. A dose lowering technique was utilized adhering to the principles of ALARA. FINDINGS: Thyroid: Imaged portions of the thyroid gland are normal in appearance. Thoracic aorta: The thoracic aorta is normal in course and caliber, noting standard 3 vessel arch jun moses. Heart: The heart is normal in size. There is trace pericardial fluid. There are mild coronary artery calcifications. Lungs and pleural spaces: There are nodular airspace opacities within the left upper lobe posteriorly consistent with a pneumonitis. There is a solid 6 mm nodule within the superior segment left lower l obe demonstrating slightly irregular margins. There are postsurgical changes present within the right middle lobe and there are interstitial right middle lobe opacities. There are a few wispy groundglas s opacities within the right upper lobe. There are dependent right lower lobe opacity statistically a telectatic. Mediastinum: There are mildly enlarged mediastinal lymph nodes. There is a prevascular lymph node emanuel suring 11 mm in short axis. A subcarinal lymph node measuring 18 mm in short axis. Breanna: Evaluation is limited due to the lack of intravenous contrast. Borderline enlarged left hilar l ymph nodes are suspected Axilla: There is no evidence of pathologic axillary lymphadenopathy Upper abdomen: Cholelithiasis Skeletal structures: Degenerative changes are present within the spine with bony ankylosis. IMPRESSION: 1. Left upper lobe airspace opacity suspicious for pneumonia. Clinical and radiographic follow-up rec ommended 2. Mild nonspecific mediastinal lymphadenopathy possibly reactive. This should be followed on subsequ ent scans. 3. 6 mm irregularly marginated left lower lobe pulmonary nodule. A 6-12 month follow-up CT scan is re commended. 4. Postsurgical changes present within the right middle lobe with age-indeterminate interstitial opac ities Please refer to below summary of Fleischner criteria recommendations for follow-up of incidental CT n odules (Michelle Corona, Guidelines for management of small pulmonary nodules detected on CT scans: A sta tement from the Fleischner Society, Radiology 237: [phone].) SOLID NODULES Solitary nodule size: <6 mm * low risk patients: no follow-up needed * high risk patients: optional CT at 12 months Solitary nodule size: 6-8 mm * low risk patients: follow-up at 6-12 months, then consider further follow-up at 18-24 months * high risk patients: initial follow-up CT at 6-12 months and then at 18-24 months if no change Solitary nodule size: >8 mm * either low or high risk patients - consider follow-up CT at 3 months, and/or CT-PET, and/or biopsy Multiple nodules size: <6 mm * low risk patients: no routine follow-up * high risk patients: optional CT at 12 months Multiple nodules size: 6-8 mm * low risk patients: follow-up at 3-6 months, then consider further follow-up at 18-24 months * high risk patients: follow-up at 3-6 months, then at 18-24 months if no change Multiple nodules size: >8 mm * low risk patients: follow-up at 3-6 months, then consider further follow-up at 18-24 months * high risk patients: follow-up at 3-6 months, then at 18-24 months if no change Note: newly detected indeterminate nodule in persons 35 years of age or older. * low risk patients: minimal or absent history of smoking and/or other known risk factors * high risk patients: history of smoking or of other known risk factors (e.g. first degree relative with lung cancer, or exposure to asbestos, radon, uranium) * if a nodule up to 8 mm is partly solid or is ground glass further follow-up is required after 24 m onths to exclude possible slow growing adenocarcinoma (JOHN) SUBSOLID NODULES Solitary pure ground-glass nodule * nodule size <6 mm - no CT follow-up required * nodule size >=6 mm - follow-up CT at 6-12 months, then every 2 years until 5 years Solitary part-solid nodule * nodule size <6 mm - no CT follow-up required * nodule size >=6 mm - follow-up CT at 3-6 months. If unchanged, and solid component remains <6 mm, then annual follow-up for 5 years Multiple subsolid nodules * nodule size <6 mm - follow-up CT at 3-6 months, consider further follow-up at 2 and 4 years if sta ble * nodule size >=6 mm - follow-up CT at 3-6 months, subsequent management based on the most suspiciou s nodule(s) ACT 112: Negative or not required by law. Electronically signed by: Hamilton Bailon M.D. 07/25/2020 7:52 AM
[2020-07-25] MEDS: INSULIN ASPART 100 UNITS/ML 3 ML PEN SC SCH ×4 (08:33→20:50)
[2020-07-25] MEDS: ENOXAPARIN INJ 40 MG/0.4 ML SYR SQ SCH (08:36)
[2020-07-25] MEDS: ATENOLOL 50 MG TABLET PO SCH (08:36)
[2020-07-25] MEDS ORDERED: VANCOMYCIN HCL 1,000 MG in SODIUM CHLORIDE 0.9% 250 ML IV SCH (09:00)
--- NOTE | 2020-07-25 09:17 | Hospitalist Progress Note ---
Date of Service July 25, 2020 Assessment & Plan (1) Multifocal pneumonia: 74 yo M with hx DM, HTN, cancer of liver and lung treated with chemo and radiation, admitted for SOB due to multifocal pneumonia. 1. Multifocal Pneumonia - atypical CAP vs. gram negative? coverage with ceftriaxone and azithromycin - new O2 requirement of 6L - otherwise asymptomatic - guafensin for mucus relief - incentive spirometry - flutter valve - duonebs QID sched DM - lantus 10u HS - SSI HTN - atenolol 100 mg po daily - clonidine 0.2 mg bid DVT ppx: lovenox 40 sq FEN/GI: DM2 diet Code Status: full code Dispo: PCU (2) Hypertension: (3) Diabetes mellitus: Admission and Anticipated Discharge Date Admission Date: July 24, 2020 Supervising Physician Co-Signing Physician Notes I personally examined the patient and verified all march points of history and exam, discussed case, and agree with decision making with Dr Preciado. feeling better coughing some vitals noted nad heent nc at mmm lungs cta except for rales base L overall clear pneumonia, hypoxia - improving. not severe cap and mrsa nares negative - de- escalate to zithromax and rocpehin. continue supportive care, wean O2. mild demand ischemia - trop trending down - stable for transfer to medical otherwise as above Subjective No shortness of breath while on nasal cannula. States he felt progressively shorter of breath at home a few days ago, [facility] had [facility] xray and echo?ekg? done and was sent home. He continued to feel short of breath at which point he came to the ER and was found to have a multifocal pneumonia. No chest tightness, chest pain. Review of Systems Constitutional: no fever, no chills and no weakness Respiratory: + cough, + dyspnea and + dyspnea on exertion; no pain on inspiration and no sputum production Cardiovascular: + dyspnea on exertion; no chest pain, no palpitations, no ligh theadedness and no edema Gastrointestinal: no abdominal pain, no nausea and no vomiting Physical Exam Physical Exam: Constitutional: obese, in no apparent distress, sitting comfortably at the side of bed eating breakfast Eyes: EOMI, pupils equal and reactive bilaterally, no scleral icterus Cardiac: RRR, no murmurs, gallops or rubs. Normal S1, S2 Pulm: Good air movement throughout all lung klein, diffuse expiratory wheezes, some focal rhonchi at posterior LLL Results & Data Results & Data ([facility]) Vital Signs (Past 12 Hours) Vital Signs Temp Pulse Pulse Resp BP BP Pulse Ox 07/25/20 08:00 36.8 C 80 18 124/63 96 07/25/20 07:24 89 16 90 07/25/20 04:37 36.4 C L 86 20 119/82 93 07/25/20 02:57 96 H 07/25/20 01:32 36.5 C 101 H 20 97 07/25/20 01:15 89 22 113/68 95 07/25/20 00:06 22 95 07/24/20 22:56 18 95 07/24/20 22:30 149/71 H 93 07/24/20 22:01 106 H 26 H 109/78 94 07/24/20 21:39 95 07/24/20 21:31 111 H 19 103/47 L 93 Laboratory Results WBC 10.52 K/uL (4.8-10.8) 07/25/20 05:58 RBC 4.85 M/uL (4.7-6.1) 07/25/20 05:58 Hgb 14.6 g/dL (14.0-18.0) 07/25/20 05:58 Hct 44.1 % (42-52) 07/25/20 05:58 MCV 90.9 fL (80-100) 07/25/20 05:58 MCH 30.1 pg (25-34) 07/25/20 05:58 MCHC 33.1 g/dL (32-36) 07/25/20 05:58 RDW Std Deviation 45.7 fL (36.4-46.3) 07/25/20 05:58 RDW Coeff of [place] 13.8 % (11.5-14.5) 07/25/20 05:58 Plt Count 148 K/uL (130-400) 07/25/20 05:58 MPV 9.8 fL (7.4-10.4) 07/25/20 05:58 Immature Gran % (Auto) 0.4 % 07/25/20 05:58 Neut % (Auto) 66.4 % 07/25/20 05:58 Lymph % (Auto) 23.7 % 07/25/20 05:58 Thomas % (Auto) 8.3 % 07/25/20 05:58 Eos % (Auto) 1.0 % 07/25/20 05:58 Baso % (Auto) 0.2 % 07/25/20 05:58 Neut # (Auto) 7.00 K/uL (1.4-6.5) H 07/25/20 05:58 Lymph # (Auto) 2.49 K/uL (1.2-3.4) 07/25/20 05:58 Thomas # (Auto) 0.87 K/uL (0.11-0.59) H 07/25/20 05:58 Eos # (Auto) 0.10 K/uL (0-0.5) 07/25/20 05:58 Baso # (Auto) 0.02 K/uL (0-0.2) 07/25/20 05:58 Immature Gran # (Auto) 0.04 K/uL (0.00-0.02) H 07/25/20 05:58 PT 10.9 Seconds (9.0-12.0) 07/24/20 22:19 INR 1.0 (0.9-1.1) 07/24/20 22:19 APTT 26.6 Seconds (21.0-31.0) 07/24/20: PTT Ratio 1.0 07/24/20 22:19 D-Dimer 4110 ug/L FEU (0-500) H* 07/24/20 22:19 VBG pH 7.36 (7.36-7.41) 07/24/20 21:31 VBG pCO2 40 mmHg (38-50) 07/24/20 21:31 VBG pO2 52 mmHg 07/24/20 21:31 VBG HCO3 22 mmol/L 07/24/20 21:31 VBG O2 Saturation 83.9 % 07/24/20 21:31 VBG Base Excess -2.8 mEq/L 07/24/20 21:31 Barometric Pressure 726.7 mm/Hg 07/24/20 21:31 Sodium 138 mmol/L (136-145) D 07/25/20 05:58 Potassium 4.1 mmol/L (3.5-5.1) 07/25/20 05:58 Chloride 107 mmol/L (98-107) 07/25/20 05:58 Carbon Dioxide 25 mmol/L (21-32) 07/25/20 05:58 Anion Gap 6.0 (3-11) 07/25/20 05:58 BUN 29 mg/dl (7-18) H 07/25/20 05:58 Creatinine 1.94 mg/dl (0.6-1.4) H D 07/25/20 05:58 Est Cr Clr Drug Dosing 46.5 ml/min 07/25/20 05:58 Est GFR ( Amer) 38.9 07/25/20 05:58 Est GFR (Non-Af Amer) 33.6 07/25/20 05:58 BUN/Creatinine Ratio 15.2 (-20) 07/25/20 05:58 Glucose 196 mg/dl (70-99) H 07/25/20 05:58 POC Glucose 244 mg/dl (70-99) H 07/25/20 11:31 Estimat Average Glucose 232 mg/dl 07/25/20 05:58 Hemoglobin A1c 9.7 % (4.5-5.6) H 07/25/20 05:58 Lactate 1.6 mmol/L (0.4-2.0) 07/25/20 00:06 Calcium 8.9 mg/dl (8.5-10.1) 07/25/20 05:58 Phosphorus 3.4 mg/dl (2.5-4.9) 07/25/20 05:58 Magnesium 2.4 mg/dl (1.8-2.4) 07/25/20 05:58 Total Bilirubin 0.4 mg/dl (0.2-1) 07/24/20 21:05 AST 36 U/L (15-37) 07/24/20 21:05 ALT 52 U/L (12-78) 07/24/20 21:05 Alkaline Phosphatase 138 U/L (45-117) H 07/24/20 21:05 Troponin I 0.247 ng/ml (0-0.045) H* 07/25/20 12:36 Total Protein 7.8 gm/dl (6.4-8.2) 07/24/20 21:05 Albumin 3.3 gm/dl (3.4-5.0) L 07/25/20 05:58 Globulin 4.1 gm/dl (2.5-4.0) H 07/24/20 21:05 Albumin/Globulin Ratio 0.9 (0.9-2) 07/24/20 21:05 Lipase 155 U/L (73-393) 07/24/20 21:05 Beta-Hydroxybutyric Acd mg/dl (0.2-2.81) 07/24/20 21:05 Procalcitonin < 0.05 ng/ml (0-0.5) 07/24/20 22:15 Specimen Hemolysis 07/24/20 21:05 Urine Color Yellow 07/24/20 22:50 Urine Appearance Clear (Clear) 07/24/20 22:50 Urine pH 5.0 (4.5-7.5) 07/24/20 22:50 Ur Specific [place] 1.025 (1.000-1.030) 07/24/20 22:50 Urine Protein 1+ (Negative) H 07/24/20 22:50 Urine Glucose (UA) 3+ (Negative) H 07/24/20 22:50 Urine Ketones Negative (Negative) 07/24/20 22:50 Urine Blood Negative (Negative) 07/24/20 22:50 Urine Nitrite Negative (Negative) 07/24/20 22:50 Urine Bilirubin Negative (Negative) 07/24/20 22:50 Urine Urobilinogen Negative (Negative) 07/24/20 22:50 Ur Leukocyte Esterase 1+ (Negative) H 07/24/20 22:50 Urine WBC (Auto) 10-30 /hpf (0-5) H 07/24/20 22:50 Urine RBC (Auto) 0-4 /hpf (0-4) 07/24/20 22:50 U Hyaline Cast (Auto) 1-5 /lpf (0-5) 07/24/20 22:50 U Epithel Cells (Auto) >30 /lpf (0-5) H 07/24/20 22:50 Urine Bacteria (Auto) Negative (Negative) 07/24/20 22:50 Urine Yeast Not Reportable 07/24/20 22:50 Urine Sperm Present (None Prsent) A 07/24/20 22:50 Nasal Screen MRSA (PCR) Negative (Negative) 07/25/20 Unknown COVID-19 Eval Order Covid19 Done at [facility] 07/24/20 20:48 COVID-19 PCR NEGATIVE (Negative) 07/24/20 20:48 Influ A Molecular Assay Negative (Negative) 07/24/20 21:05 Influ B Molecular Assay Negative (Negative) 07/24/20 21:05 Resident Activity Tracking Resident Involvement: Resident Care Provided Care Provided: Adult [facility]
--- NOTE | 2020-07-25 13:04 | Pharmacy Report ---
Pharmacy Abx Initial Consult - Date of Service July 25, 2020 - Pharmacy Dosing Scope Date of Consult: 07/25/20 Consultation requested by: Dr. Aburto Pharmacy is consulted to initiate Vancomycin IV dosing therapy, order appropriate labs and adjust drug dose/frequency. - Subjective The patient is a 74 year old M admitted on 07/24/20 23:52. - Objective Height: 6 ft Weight: 122.47 kg Vital Signs (Past 12hrs): Vital Signs Temp Pulse Pulse Resp BP BP Pulse Ox 07/25/20 11:42 36.5 C 74 18 131/74 97 07/25/20 11:13 78 18 90 07/25/20 09:00 85 07/25/20 08:00 36.8 C 80 18 124/63 96 07/25/20 07:24 89 16 90 07/25/20 04:37 36.4 C L 86 20 119/82 93 07/25/20 02:57 96 H 07/25/20 01:32 36.5 C 101 H 20 97 07/25/20 01:15 89 22 113/68 95 Pulse Ox 07/25/20 11:42 07/25/20 11:13 07/25/20 09:00 99 07/25/20 08:00 99 07/25/20 07:24 07/25/20 04:37 07/25/20 02:57 07/25/20 01:32 07/25/20 01:15 Lab Results (24hrs): Laboratory Tests (24 Hours) 07/25/20 07/25/20 07/24/20 05:58 05:58 22:15 WBC 10.52 Neut # (Auto) 7.00 H Creatinine 1.94 H D Est Cr Clr Drug Dosing 46.5 Procalcitonin < 0.05 07/24/20 07/24/20 07/24/20 21:05 21:05 21:05 WBC 13.32 H Neut # (Auto) 11.52 H Creatinine 2.40 H Est Cr Clr Drug Dosing 37.4 Procalcitonin Cancelled Micro Results: 07/24/20 22:50 Urine Culture - Pending Urine,Clean Catch 07/24/20 21:31 Aerobic Blood Culture - Pending Blood Anaerobic Blood Culture - Pending 07/24/20 21:05 Aerobic Blood Culture - Pending Blood Anaerobic Blood Culture - Pending - Risk Factors for Resistance * Immunocompromised (chemotherapy) - Assessment & Plan Assessment 74 year old M admitted with multifocal Pneumonia. Patient with history of diabetes. 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 Pharmacy consulted for Vancomycin dosing. Scr = 1.94 slightly improved from 2.4 yesterday. CrCl=46.5. Renal function changing but seems to be improving. Plan Vancomycin IV * Estimated PK Parameters: Vd 0.7 L/kg, Rashid 0.043 hr-1, t1/2 16.1 hr * Loading dose: 2500 mg IV (20.5 mg/kg) x 1 given yesterday night. * Maintenance dose: Vancomycin 1750 mg IV (14 mg/kg) every 24 hours ordered to start this evening. * Goal trough level for Pneumonia: 15 to 20 mcg/mL * Trough Vanco level ordered for 07/27/20 before dose at 1800. * A less than traditional dose has been selected due to likelihood of drug accumulation in obese patient with some renal insufficiency. Pharmacy will continue to follow and will adjust dose/frequency as necessary. Thank you.
[2020-07-25] MEDS ORDERED: COUGH DROP (SUGAR FREE) LOZ 24 LOZ/1 BOX BUCCAL ONE (13:14)
[2020-07-25] MEDS ORDERED: guaiFENesin SUGAR FREE 100 MG/5 ML UDC PO PRN (14:12)
[2020-07-25] MEDS ORDERED: cefTRIAXone SODIUM 2,000 MG in DEXTROSE 5% 50 ML IV SCH (16:00)
[2020-07-25] MEDS: AZITHROMYCIN 250 MG TAB PO SCH (16:38)
[2020-07-25] MEDS ORDERED: VANCOMYCIN HCL 1,750 MG in SODIUM CHLORIDE 0.9% 500 ML IV SCH (18:00)
--- NOTE | 2020-07-25 19:22 | Electrocardiogram Report ---
Test Reason : Blood Pressure : / mmHG Vent. Rate : 116 BPM Atrial Rate : 116 BPM P-R Int : 148 ms QRS Dur : 084 ms QT Int : 348 ms P-R-T Axes : 062 041 005 degrees QTc Int : 483 ms Sinus tachycardia Nonspecific ST abnormality Abnormal ECG No previous ECGs available Confirmed by Remy Anderson ([id number]) on 07/25/2020 7:22:13 PM Referred By: REFERRED SELF Confirmed By:Remy Anderson
--- NOTE | 2020-07-25 19:32 | Electrocardiogram Report ---
Test Reason : Blood Pressure : / mmHG Vent. Rate : 085 BPM Atrial Rate : 085 BPM P-R Int : 162 ms QRS Dur : 090 ms QT Int : 392 ms P-R-T Axes : 067 050 030 degrees QTc Int : 466 ms Normal sinus rhythm Normal ECG When compared with ECG of 24-JUL-2020 20:46, ST no longer depressed in Anterior leads Confirmed by Remy Anderson ([id number]) on 07/25/2020 7:32:32 PM Referred By: REFERRED SELF Confirmed By:Remy Anderson
--- NOTE | 2020-07-25 19:59 | Billing Data ---
Date of Service July 25, 2020 Coding Level of Care Code 32698 Subseq Hosp Care Lvl 3
[2020-07-25] MEDS ORDERED: AZITHROMYCIN 500 MG in DEXTROSE 5% 250 ML IV SCH (22:00)
[2020-07-26] MEDS: ALBUT/IPRATROP 3MG/0.5MG NEB 3 ML VIAL NEB SCH ×5 (04:11→19:44)
[2020-07-26 07:48] LABS: Basophils # (auto) 0.05 K/uL (0-0.2); Basophils % (auto) 0.5 %; Eosinophils # (auto) 0.28 K/uL (0-0.5); Eosinophils % (auto) 2.6 %; Hematocrit (blood only) 43.5 % (42-52); Immature Granulocytes # (auto) 0.03 K/uL (0.00-0.02); Immature Granulocytes % (auto) 0.3 %; Lymphocytes # (auto) 1.74 K/uL (1.2-3.4); Lymphocytes % (auto) 16.2 %; Mean Corpuscular Hemoglobin 30.2 pg (25-34); Mean Corpuscular Hgb Conc 32.2 g/dL (32-36); Mean Corpuscular Volume 93.8 fL (80-100); Mean Platelet Volume 9.2 fL (7.4-10.4); Monocytes # (auto) 0.97 K/uL (0.11-0.59); Neutrophils % (auto) 71.4 %; Platelet Count 169 K/uL (130-400); RDW Coefficient of Variation 14.3 % (11.5-14.5); RDW Standard Deviation 48.7 fL (36.4-46.3); Red Blood Count 4.64 M/uL (4.7-6.1); White Blood Count 10.77 K/uL (4.8-10.8)
[2020-07-26 08:16] LABS: Albumin Level 3.4 gm/dl (3.4-5.0); BUN Creatinine Ratio 14.2 (10-20); Creatinine Clr Calc Pharmacy 49.6 ml/min; Est GFR (African American) 42.1; Est GFR (Non-African American) 36.3; Potassium 4.6 mmol/L (3.5-5.1)
--- NOTE | 2020-07-26 08:28 | Electrocardiogram Report ---
Test Reason : Blood Pressure : / mmHG Vent. Rate : 074 BPM Atrial Rate : 074 BPM P-R Int : 164 ms QRS Dur : 092 ms QT Int : 396 ms P-R-T Axes : 067 055 043 degrees QTc Int : 439 ms Poor data quality, interpretation may be adversely affected Normal sinus rhythm Normal ECG When compared with ECG of 25-JUL-2020 06:34, No significant change was found Confirmed by Aidan Stuart ([id number]) on 07/26/2020 8:28:27 AM Referred By: REFERRED SELF Confirmed By:Aidan Stuart
[2020-07-26 08:39] LABS: Troponin I 0.082 ng/ml (0-0.045)
[2020-07-26] MEDS ORDERED: cefTRIAXone SODIUM 1,000 MG in DEXTROSE 5% 50 ML IV SCH (09:00)
--- NOTE | 2020-07-26 09:18 | Hospitalist Progress Note ---
Date of Service July 26, 2020 Assessment & Plan (1) Multifocal pneumonia: 74 yo M with hx DM, HTN, cancer of liver and lung treated with chemo and radiation, admitted for SOB due to multifocal pneumonia. Multifocal Pneumonia - atypical CAP vs. gram negative - converted to PO Cefdinir and azithromycin - decreasing O2 requirements from 6L to 3.5L - no previous baseline O2 requirements - continue Pulm toliet - gave 10mg IV Solu-medrol which demonstrated improvement in O2 requirements - start 20mg PO Prednisone tomorrow DM - lantus 10u HS - SSI HTN - atenolol 100 mg po daily - clonidine 0.2 mg bid (2) Hypertension: (3) Diabetes mellitus: Admission and Anticipated Discharge Date Admission Date: July 24, 2020 Supervising Physician Co-Signing Physician Notes I personally examined the patient and verified all march points of history and exam, discussed case, and agree with decision making with Dr Alford. continues to feel better, actually coughing less vitals noted nad heent nc at mmm lungs cta surprinsgly no real r/r/w when i listen today pneumonia, hypoxia - improving. not severe cap and mrsa nares negative - de- escalated to zithromax and rocpehin. continue supportive care, weaning O2. steroids appear to be helping as well mild demand ischemia - trop trended down otherwise as above Subjective Patient feels much improved this morning and throughout the day. Feels like he is getting closer to his normal self, with less and less of the coughing throughout the night. Was maintained on 6LNC overnight, but able to be weaned throughout the day to 3.5L following administration of steroids. Patient does not want to go home on oxygen support, but recognizes that this is hard to predict as he continues to improve symptomatically. Review of Systems Review of Systems: All systems reviewed & are unremarkable except as noted in Subjective Physical Exam Constitutional: WD/WN, vitals as above Eyes: PERRL, conjunctivae normal, anicteric sclerae Respiratory: normal respiratory effort, + cough, able to speak in complete sentences and + audible wheezes; no respiratory distress and no labored breathing Auscultation: + crackles and + wheezes; breath sounds present and no diminished lung sounds Gastrointestinal (Abdomen): normal bowel sounds, soft, nontender, no hepatosplenomegaly Skin: no rashes, warm and dry Psychiatric: Orientation: alert and oriented x 3 Results & Data Results & Data ([facility]) Vital Signs (Past 12 Hours) Vital Signs Temp Pulse Resp BP Pulse Ox 07/26/20 07:27 36.7 C 73 18 136/87 91 07/26/20 07:18 71 18 92 07/26/20 04:12 77 20 94 07/25/20 22:09 36.7 C 75 20 118/80 95 Laboratory Results 07/26/20 07/26/20 07/26/20 Range/Units 13:24 11:28 07:42 WBC (4.8-10.8) K/uL RBC (4.7-6.1) M/uL Hgb (14.0-18.0) g/dL Hct (42-52) % MCV (80-100) fL MCH (25-34) pg MCHC (32-36) g/dL RDW Std Deviation (36.4-46.3) fL RDW Coeff of [place] (11.5-14.5) % Plt Count (130-400) K/uL MPV (7.4-10.4) fL Immature Gran % (Auto) % Neut % (Auto) % Lymph % (Auto) % Barron % (Auto) % Eos % (Auto) % Baso % (Auto) % Neut # (Auto) (1.4-6.5) K/uL Lymph # (Auto) (1.2-3.4) K/uL Barron # (Auto) (0.11-0.59) K/uL Eos # (Auto) (0-0.5) K/uL Baso # (Auto) (0-0.2) K/uL Immature Gran # (Auto) (0.00-0.02) K/uL Sodium (136-145) mmol/L Potassium (3.5-5.1) mmol/L Chloride (98-107) mmol/L Carbon Dioxide (21-32) mmol/L Anion Gap (3-11) BUN (7-18) mg/dl Creatinine (0.6-1.4) mg/dl Est Cr Clr Drug Dosing ml/min Est GFR ( Amer) Est GFR (Non-Af Amer) BUN/Creatinine Ratio (10-20) Glucose (70-99) mg/dl POC Glucose 230 H 167 H (70-99) mg/dl Calcium (8.5-10.1) mg/dl Phosphorus (2.5-4.9) mg/dl Troponin I 0.068 H* (0-0.045) ng/ml Albumin (3.4-5.0) gm/dl 07/26/20 07/26/20 07/25/20 Range/Units 07:39 07:39 20:57 WBC 10.77 (4.8-10.8) K/uL RBC 4.64 L (4.7-6.1) M/uL Hgb 14.0 (14.0-18.0) g/dL Hct 43.5 (42-52) % MCV 93.8 (80-100) fL MCH 30.2 (25-34) pg MCHC 32.2 (32-36) g/dL RDW Std Deviation 48.7 H (36.4-46.3) fL RDW Coeff of [place] 14.3 (11.5-14.5) % Plt Count 169 (130-400) K/uL MPV 9.2 (7.4-10.4) fL Immature Gran % (Auto) 0.3 % Neut % (Auto) 71.4 % Lymph % (Auto) 16.2 % Barron % (Auto) 9.0 % Eos % (Auto) 2.6 % Baso % (Auto) 0.5 % Neut # (Auto) 7.70 H (1.4-6.5) K/uL Lymph # (Auto) 1.74 (1.2-3.4) K/uL Barron # (Auto) 0.97 H (0.11-0.59) K/uL Eos # (Auto) 0.28 (0-0.5) K/uL Baso # (Auto) 0.05 (0-0.2) K/uL Immature Gran # (Auto) 0.03 H (0.00-0.02) K/uL Sodium 139 (136-145) mmol/L Potassium 4.6 (3.5-5.1) mmol/L Chloride 108 H (98-107) mmol/L Carbon Dioxide 26 (21-32) mmol/L Anion Gap 5.0 (3-11) BUN 26 H (7-18) mg/dl Creatinine 1.82 H (0.6-1.4) mg/dl Est Cr Clr Drug Dosing 49.6 ml/min Est GFR ( Amer) 42.1 Est GFR (Non-Af Amer) 36.3 BUN/Creatinine Ratio 14.2 (10-20) Glucose 155 H (70-99) mg/dl POC Glucose (70-99) mg/dl Calcium 9.0 (8.5-10.1) mg/dl Phosphorus 3.0 (2.5-4.9) mg/dl Troponin I 0.082 H* 0.144 H* (0-0.045) ng/ml Albumin 3.4 (3.4-5.0) gm/dl 07/25/20 07/25/20 Range/Units 20:02 16:20 WBC (4.8-10.8) K/uL RBC (4.7-6.1) M/uL Hgb (14.0-18.0) g/dL Hct (42-52) % MCV (80-100) fL MCH (25-34) pg MCHC (32-36) g/dL RDW Std Deviation (36.4-46.3) fL RDW Coeff of [place] (11.5-14.5) % Plt Count (130-400) K/uL MPV (7.4-10.4) fL Immature Gran % (Auto) % Neut % (Auto) % Lymph % (Auto) % Barron % (Auto) % Eos % (Auto) % Baso % (Auto) % Neut # (Auto) (1.4-6.5) K/uL Lymph # (Auto) (1.2-3.4) K/uL Barron # (Auto) (0.11-0.59) K/uL Eos # (Auto) (0-0.5) K/uL Baso # (Auto) (0-0.2) K/uL Immature Gran # (Auto) (0.00-0.02) K/uL Sodium (136-145) mmol/L Potassium (3.5-5.1) mmol/L Chloride (98-107) mmol/L Carbon Dioxide (21-32) mmol/L Anion Gap (3-11) BUN (7-18) mg/dl Creatinine (0.6-1.4) mg/dl Est Cr Clr Drug Dosing ml/min Est GFR ( Amer) Est GFR (Non-Af Amer) BUN/Creatinine Ratio (10-20) Glucose (70-99) mg/dl POC Glucose 148 H 159 H (70-99) mg/dl Calcium (8.5-10.1) mg/dl Phosphorus (2.5-4.9) mg/dl Troponin I (0-0.045) ng/ml Albumin (3.4-5.0) gm/dl Medications Administered Current Inpatient Medications Acetaminophen (Acetaminophen 325 Mg Tab) 650 mg PO Q4H PRN PRN Reason: Pain or Fever Stop: 08/24/20 02:49 Albuterol (Albut/Ipratrop 3mg/0.5mg Neb 3 Ml Vial) 3 ml NEB QIDR YOJANA Stop: 08/24/20 06:59 Last Admin: 07/26/20 15:36 Dose: 3 ml Documented by: Atenolol (Atenolol 50 Mg Tablet) 100 mg PO DAILY YOJANA Stop: 08/24/20 08:59 Last Admin: 07/26/20 09:56 Dose: 100 mg Documented by: Azithromycin (Azithromycin 250 Mg Tab) 500 mg PO QAM YOJANA Stop: 07/27/20 09:01 Last Admin: 07/26/20 09:56 Dose: 500 mg Documented by: Cefdinir (Cefdinir 300 Mg Cap) 300 mg PO BID YOJANA Stop: 08/02/20 10:59 Last Admin: 07/26/20 11:45 Dose: 300 mg Documented by: Clonidine HCl (Clonidine Hcl 0.1 Mg Tab) 0.2 mg PO BID YOJANA Stop: 08/24/20 02:49 Last Admin: 07/26/20 09:56 Dose: 0.2 mg Documented by: Dextrose (Dextrose 50% 50 Ml Syringe) 25 - 50 ml IV UD PRN; Protocol PRN Reason: Hypoglycemia Protocol Stop: 08/24/20 02:49 Enoxaparin Sodium (Enoxaparin Inj 40 Mg/0.4 Ml Syr) 40 mg SQ Q24H YOJANA Stop: 08/24/20 08:59 Last Admin: 07/26/20 09:56 Dose: 40 mg Documented by: Glucagon (Glucagon For Inj 1 Mg Vial) 1 mg SQ UD PRN; Protocol PRN Reason: Hypoglycemia Protocol Stop: 08/24/20 02:49 Glucose (Glucose 10 Tabs/Tube) 4 - 8 tabs PO UD PRN; Protocol PRN Reason: Hypoglycemia Protocol Stop: 08/24/20 02:49 Glucose (Glucose 40% Gel 15 Gm Tube) 15 - 30 gm PO UD PRN; Protocol PRN Reason: Hypoglycemia Protocol Stop: 08/24/20 02:49 Guaifenesin (Guaifenesin Sugar Free 100 Mg/5 Ml Udc) 100 mg PO Q6H PRN PRN Reason: Cough Stop: 08/24/20 14:11 Last Admin: 07/25/20 14:36 Dose: 100 mg Documented by: Insulin Aspart (Insulin Aspart 100 Units/Ml 3 Ml Pen) 0 units SC ACHS [facility] Stop: 08/24/20 07:29 Last Admin: 07/26/20 12:28 Dose: 11 units Documented by: Miscellaneous (Carbohydrates For Hypoglycemia ) 15 - 30 gm PO UD PRN PRN Reason: Hypoglycemia Protocol Stop: 08/24/20 02:49 Ondansetron HCl (Ondansetron Inj 2 Mg/Ml 2 Ml Vial) 4 mg IV Q6H PRN PRN Reason: Nausea Stop: 08/24/20 02:49 Prednisone (Prednisone 20 Mg Tab) 20 mg PO QAM [facility] Stop: 07/29/20 09:01 Resident Activity Tracking Resident Involvement: Resident Care Provided Care Provided: Adult Hospital Medicine
[2020-07-26] MEDS: INSULIN ASPART 100 UNITS/ML 3 ML PEN SC SCH ×4 (09:55→20:38)
[2020-07-26] MEDS: ATENOLOL 50 MG TABLET PO SCH (09:56)
[2020-07-26] MEDS: AZITHROMYCIN 250 MG TAB PO SCH (09:56)
[2020-07-26] MEDS: cloNIDine HCL 0.1 MG TAB PO SCH ×2 (09:56→20:38)
[2020-07-26] MEDS: ENOXAPARIN INJ 40 MG/0.4 ML SYR SQ SCH (09:56)
[2020-07-26] MEDS ORDERED: methylPREDNISolone 10 MG in SYRINGE 0 ML IV ONE (11:15)
[2020-07-26] MEDS: CEFDINIR 300 MG CAP PO SCH ×2 (11:45→20:32)
--- NOTE | 2020-07-26 17:10 | Billing Data ---
Date of Service July 26, 2020 Coding Level of Care Code 14420 Subseq Hosp Care Lvl 2
[2020-07-27 07:01] LABS: Basophils # (auto) 0.02 K/uL (0-0.2); Basophils % (auto) 0.2 %; Eosinophils # (auto) 0.21 K/uL (0-0.5); Eosinophils % (auto) 2.4 %; Hematocrit (blood only) 43.6 % (42-52); Hemoglobin 14.2 g/dL (14.0-18.0); Immature Granulocytes # (auto) 0.02 K/uL (0.00-0.02); Immature Granulocytes % (auto) 0.2 %; Lymphocytes # (auto) 1.72 K/uL (1.2-3.4); Lymphocytes % (auto) 19.8 %; Mean Corpuscular Hemoglobin 30.2 pg (25-34); Mean Corpuscular Hgb Conc 32.6 g/dL (32-36); Mean Corpuscular Volume 92.8 fL (80-100); Mean Platelet Volume 9.4 fL (7.4-10.4); Monocytes # (auto) 0.71 K/uL (0.11-0.59); Monocytes % (auto) 8.2 %; Neutrophils % (auto) 69.2 %; Platelet Count 171 K/uL (130-400); RDW Standard Deviation 47.3 fL (36.4-46.3); White Blood Count 8.68 K/uL (4.8-10.8)
[2020-07-27 07:33] LABS: Albumin Level 3.4 gm/dl (3.4-5.0); Calcium 9.3 mg/dl (8.5-10.1); Creatinine Clr Calc Pharmacy 53.1 ml/min; Est GFR (African American) 45.7; Est GFR (Non-African American) 39.4; Potassium 4.1 mmol/L (3.5-5.1)
[2020-07-27 07:34] LABS: Phosphorus 3.1 mg/dl (2.5-4.9)
[2020-07-27] MEDS: ALBUT/IPRATROP 3MG/0.5MG NEB 3 ML VIAL NEB SCH (07:39)
[2020-07-27] MEDS ORDERED: predniSONE 20 MG TAB PO SCH (09:00)
[2020-07-27] MEDS: INSULIN ASPART 100 UNITS/ML 3 ML PEN SC SCH ×2 (09:14→12:30)
[2020-07-27] MEDS: AZITHROMYCIN 250 MG TAB PO SCH (09:16)
[2020-07-27] MEDS: ATENOLOL 50 MG TABLET PO SCH (09:16)
[2020-07-27] MEDS: CEFDINIR 300 MG CAP PO SCH (09:17)
[2020-07-27] MEDS: cloNIDine HCL 0.1 MG TAB PO SCH (09:31)
[2020-07-27] MEDS: ENOXAPARIN INJ 40 MG/0.4 ML SYR SQ SCH (09:31)
[2020-07-27] MEDS ORDERED: ALBUT/IPRATROP 3MG/0.5MG NEB 3 ML VIAL NEB PRN (10:39)
--- NOTE | 2020-07-27 11:34 | Discharge Summary ---
Date of Service July 27, 2020 Admission HPI Per Admitting Provider The patient is a 74-year-old male with a past medical history including hypertension, diabetes mellitus, presently undergoing chemotherapy for cancer involving lung and kidney. He was seen at the [facility] clinic yesterday due to developing shortness of breath, and reports having a chest x-ray and EKG that he thought were normal. Due to worsening issues with breathing, he presented to the emergency department today for further assessment. Work-up in the emergency department included a chest x-ray and CT scan of chest which showed multifocal pneumonia, creatinine 2.40, troponin 0 0.094, magnesium 1.7, D-dimer 4110, and WBC 13.32. Principal Diagnosis Multifocal Pneumonia Discharge Exam Constitutional WD/WN, vitals as above Eyes PERRL, conjunctivae normal, anicteric sclerae Respiratory normal respiratory effort, + cough, able to speak in complete sentences and + audible wheezes; no respiratory distress and no labored breathing Auscultation: + crackles and + wheezes; breath sounds present and no diminished lung sounds Gastrointestinal (Abdomen) normal bowel sounds, soft, nontender, no hepatosplenomegaly Skin no rashes, warm and dry Psychiatric Orientation: alert and oriented x 3 Discharge Data Allergies Allergy/AdvReac Type Severity Reaction Status Date / Time No Known Allergies Allergy Verified 07/24/20 23:15 Consultations 07/24/20 23:01 ED Decision to Admit Stat 07/25/20 02:50 Consult Case Management - Discharge Planning Routine Ordered Studies 07/24/20 22:07 CT chest wo con Urgent Diabetes Follow up Diabetes Follow-up Needed for HgbA1c >9% Hospital Course (1) Multifocal pneumonia: 74 yo M with hx DM, HTN, cancer of liver and lung treated with chemo and radiation, admitted for SOB due to multifocal pneumonia. Multifocal Pneumonia - atypical CAP vs. gram negative bacterial source considered in the setting of previous lung cancer - no home O2 supplementation required following discharge - continue Prednisone 20mg dialy for two additional days - continue Azithromycin 250mg daily for two additional days - continue Cefdinir 300mg BID for 5 additional days - provided with Albuterol MDI to be used q6h as needed for wheezing/shortness of breath DM - continue Glipizide 10mg BID HTN - continue atenolol 100 mg daily - continue clonidine 0.2 mg bid (2) Hypertension: (3) Diabetes mellitus: Total Time Total Time Spent Total Time Spent (In Minutes): <30 Discharge Plan Discharge Items Patient Disposition: Home - Self-Care Reason For Visit: MULTIFOCAL PNEUMONIA, NSTEMI Discharge Diagnosis: Multifocal pneumonia Activity: Per Instructions section Non-emergency contact: Primary Care Provider Call non-emergency contact if: you have any medication questions, your symptoms worsen and you have a fever Follow-up/Referrals: PCP,NO [Primary Care Provider] - Diet: Carb Consistent or DM2 and Heart Healthy Addtl Attending Provider Instructions: You were seen and admitted for concern of worsening shortness of breath; during this evaluation you had imaging of your chest done that demonstrated that this shortness of breath you were feeling was the result of a pneumonia. For this you were started on antibiotics to control the infection and with these you continued to improve and no longer required oxygen support. Now that you are being discharged, you will be continued on these antibiotics for a couple more days that it is important that you finish in order to completely treat the pneumonia that brought you to the hospital. Pending Studies at Discharge: No Stand-Alone Forms: My [facility], Smoking Cessation Medications and DC Order Prescriptions: New azithromycin 250 mg tablet 250 mg PO DAILY 2 Days Qty: 2 RF: 0 prednisone 20 mg tablet 20 mg PO DAILY 2 Days Qty: 2 RF: 0 cefdinir 300 mg capsule 300 mg PO BID 5 Days Qty: 10 RF: 0 albuterol sulfate [Ventolin HFA] 90 mcg/actuation HFA aerosol inhaler 1 inh inhalation Q6H PRN (Reason: shortness of breath or wheezing) Qty: 6.7 RF: 0 Continued clonidine HCl 0.1 mg tablet 0.2 mg PO BID RF: 0 atenolol 100 mg tablet 100 mg PO DAILY RF: 0 glipizide 10 mg tablet 10 mg PO BID RF: 0 Discharge Orders: Discharge Order (Routine); Ordered 07/27/20 Ordered By: Tab Garcia/Other Patient Handouts: High Blood Sugar (Hyperglycemia), Managing Type 2 Diabetes, Diabetes: Meal Planning Admission Data Admit Date/Time: 07/24/20 23:52 Attending Provider: Forrest Lim Admit Provider: Paul Aburto Primary Care Provider: PCP,NO Other Providers: Meri Preciado ; Paul Aburto Other Interventions: Discharge Summary Assessment (RN) Last Done: 07/27/20 11:27 Supervising Physician Co-Signing Physician Notes I personally examined the patient and verified all march points of history and exam, discussed case, and agree with decision making with Dr Alford. continues to feel better, off O2 and did well walking without vitals noted nad heent nc at mmm lungs cta still, no real r/r/w when i listen today pneumonia, hypoxia - improving. not severe cap and mrsa nares negative - de- escalated to zithromax and rocephin. now weaned from O2 - ok for home on zithromax and cefdinir mild demand ischemia - trop trended down - outpt f/u otherwise as above Resident Activity Tracking Resident Involvement: Resident Care Provided Care Provided: Adult Hospital Medicine
[2020-07-27] MEDS ORDERED: VANCOMYCIN TROUGH ONE (17:30)
--- NOTE | 2020-07-27 17:58 | Billing Data ---
Date of Service July 27, 2020 Coding Level of Care Code D/C Day Management <30 mins
== END 2020-07-27 14:50 | disposition home or self-care (01) | DRG 194 ==
LOC: ED 20:29 → SUATTDRO 23:52 → 2S 23:52 → 2W 07-25 22:18